=== PATIENT | female | born 1950 | race Caucasian/White ===

== ENCOUNTER → 2020-05-10 | Outpatient (CLI) | payer MEDICARE, BC, OTHER ==
--- NOTE | 2020-05-21 11:58 | REP ---
URINARY TRACT SONOGRAPHY HISTORY: Chronic kidney disease stage III. FINDINGS: Scanning at the level of the urinary bladder shows no abnormality. Renal cortical echogenicity pattern is normal and renal contours are smooth bilaterally. There is no evidence of hydronephrosis on either side. No cyst, mass, or calculus on either side. Right renal dimensions are 10.0 x 4.4 x 4.3 cm. The left kidney measures 9.9 x 4.4 x 5.4 cm. IMPRESSION: Unremarkable urinary tract sonography. MTDD
== END ==
LOC: M RAD 08:24
PROVIDERS: ATTEND Internal Medicine Nephrology
DX: N18.3 Chronic kidney disease, stage 3 (moderate) (principal)

== ENCOUNTER → 2020-08-16 | Outpatient (CLI) | payer MEDICARE, BC, OTHER ==
[2020-08-16 20:34] LABS: ALBUMIN 3.8 GM/DL (3.2-5.2); BILIRUBIN,TOTAL 0.3 MG/DL (0.2-1.0); CALCIUM LEVEL 8.7 MG/DL (8.8-10.2); CHOLESTEROL RISK RATIO 2.696 (<5); CREATININE FOR GFR 1.92 MG/DL (0.55-1.30); FREE T4 0.93 NG/DL (0.76-1.46); GLOMERULAR FILTRATION RATE 27.7 (>45); POTASSIUM SERUM 3.9 MEQ/L (3.5-5.1); THYROID STIMULATING HORMONE 1.87 uIU/ML (0.358-3.740); TOTAL PROTEIN 7.6 GM/DL (6.4-8.2)
[2020-08-16 20:37] LABS: CREATININE, URINE 69.4 MG/DL; MALB URINE SIEMENS 9.4 MG/L; MAU/CREAT RATIO 13.5 MCG/MG (0.0-30.0); TOTAL 25(OH) VITAMIN D 47.8 NG/ML (30.0-100.0)
[2020-08-16 20:47] LABS: HEMOGLOBIN A1c 6.7 %
== END ==
LOC: M WUC 15:10
PROVIDERS: ATTEND Nurse Practitioner Family
DX: I10 Essential (primary) hypertension (principal)

== ENCOUNTER → 2020-09-22 | Outpatient (CLI) | payer MEDICARE, BC, OTHER ==
[2020-09-22 16:55] LABS: CREATININE FOR GFR 1.63 MG/DL (0.55-1.30); GLOMERULAR FILTRATION RATE 33.4 (>45)
== END ==
LOC: M WUC 14:21
PROVIDERS: ATTEND Nurse Practitioner Family
DX: Z01.818 Encounter for other preprocedural examination (principal)

== ENCOUNTER → 2020-12-22 | Outpatient (CLI) | payer SELFPAY | LOC: M LABSMTC 11:11 | PROVIDERS: ATTEND Pediatrics | DX: Z11.52 Encounter for screening for COVID-19 (principal) ==

== ENCOUNTER → 2021-05-19 | Outpatient (CLI) | payer MEDICARE, BC, OTHER ==
[~2021-05-19] MED LIST: ATIV1TAB10; ATIV1TAB10 PO; CITA20TA7 PO; CITA40TA4; DOK1CAP4 PO; ERGO500029 PO; FAMO1TAB11 PO; FAMO20TA5; GABA-1171 PO; GLIP2.5T6 PO; HYDR-3490 PO; JARD1TAB; JARD1TAB3 PO; METF10004; METO1TAB33; METO1TAB7 PO; OMEP-218; ONDA8TAB10 PO; POTA1TAB14; POTA20TA6 PO; PROC10TA4; ROSU40TA4 PO; SERT50TA29 PO; TRAM50TA2; TRAZ-252 PO
== END ==
LOC: M ONCR 10:32
PROVIDERS: ATTEND Radiology Radiation Oncology
DX: C50.411 Malignant neoplasm of upper-outer quadrant of right female breast (principal); E11.22 Type 2 diabetes mellitus with diabetic chronic kidney disease; E78.00 Pure hypercholesterolemia, unspecified; E78.5 Hyperlipidemia, unspecified; M12.9 Arthropathy, unspecified; N18.9 Chronic kidney disease, unspecified; Z80.3 Family history of malignant neoplasm of breast; Z96.642 Presence of left artificial hip joint

== ENCOUNTER → 2021-05-30 | Outpatient (CLI) | payer MEDICARE, BC, OTHER ==
[2021-05-30 14:52] LABS: CREATININE FOR GFR 1.64 MG/DL (0.55-1.30); GLOMERULAR FILTRATION RATE 33.2 (>45)
== END ==
LOC: M LAB 13:46
PROVIDERS: ATTEND Nurse Practitioner Family
DX: R19.7 Diarrhea, unspecified (principal); R10.84 Generalized abdominal pain; R11.2 Nausea with vomiting, unspecified; K59.00 Constipation, unspecified

== ENCOUNTER 2021-06-17 14:13 | Outpatient (RCR) | payer MEDICARE, BC, OTHER | END 2021-06-19 | LOC: M ONCR 14:13 | PROVIDERS: ATTEND General Practice | DX: C50.411 Malignant neoplasm of upper-outer quadrant of right female breast (principal); R11.0 Nausea | CPT/HCPCS: 77290; 77295; 77300; 77332; 77334; 77336; 77387; 77412; G0463 ==

== ENCOUNTER → 2021-06-17 | Outpatient (CLI) | payer MEDICARE, BC, OTHER ==
--- NOTE | 2021-06-17 16:11 | REP ---
INDICATION: RT CHEST WALL NODULE CYST VS MASS. COMPARISON: None. TECHNIQUE: Real-time sonographic evaluation of the right chest wall FINDINGS: There are no cystic or solid masses. IMPRESSION: Negative right chest wall ultrasound. <Electronically signed by Vu Thompson > 06/17/21 [id number]
== END ==
LOC: M RAD 14:47
PROVIDERS: ATTEND Internal Medicine Medical Oncology
DX: R22.2 Localized swelling, mass and lump, trunk (principal)

== ENCOUNTER → 2021-06-20 | Outpatient (CLI) | payer MEDICARE, BC, OTHER ==
--- NOTE | 2021-06-20 20:23 | ECHO ---
ECHOCARDIOGRAM DATE OF PROCEDURE: 06/20/2021 Age: 70 Gender: Female Height: 157 cm Weight: 88 kg REFERRING PHYSICIAN: Rudy Dillard MD INDICATION: Chemotherapy. MEASUREMENTS: IVS 1.1 cm LV 4.9 cm LVPW 1.1 cm LA 4.0 cm Aorta 2.7 cm IVC 1.2 cm DOPPLER MEASUREMENT Mitral E wave velocity 64 Mitral A wave velocity 67 E prime septal 5.8 E prime lateral 7.5 LVEF 57% Global longitudinal strain negative 18.9% FINDINGS: This study is of acceptable technical quality. The patient is in sinus rhythm. Normal LV size with preserved LV systolic function, calculated LVEF 57%. Normal RV size and systolic function. Left atrium is at least moderately enlarged. Right atrium was poorly visualized. Aortic, mitral, and tricuspid valves appeared normal. Pulmonic valve was not well visualized. No pericardial effusion is noted. Indwelling Cortez catheter is of normal size and appropriately collapses with inspiration indicative of normal central venous pressure. The aortic root is normal. Aortic arch and abdominal aorta were not well visualized. Doppler interrogation of the aortic valve reveals no stenosis or insufficiency. There is trace mitral insufficiency and trace tricuspid insufficiency. Calculated pulmonary artery systolic pressure is within normal limits. Mitral inflow pattern and tissue Doppler imaging of the mitral annulus revealed grade 1 diastolic dysfunction. Global longitudinal strain was negative 18.9%, which represents normal values. Calculated LVEF was 57%. CONCLUSION: 1. Study is of acceptable technical quality. Underlying sinus rhythm. 2. Normal LV size with normal LV systolic function and grade 1 diastolic dysfunction. Calculated LVEF 57%. GLS -18.9% (normal values). 3. No significant valvular disease. 4. Normal central venous pressure and likely normal pulmonary artery pressure.
== END ==
LOC: M CARPUL 11:31
PROVIDERS: ATTEND Internal Medicine Medical Oncology
DX: Z51.81 Encounter for therapeutic drug level monitoring (principal); C50.911 Malignant neoplasm of unspecified site of right female breast

== ENCOUNTER 2021-07-01 14:17 | Outpatient (RCR) | payer MEDICARE, BC, OTHER ==
[~2021-07-01 14:17] MED LIST changes: -CITA40TA4; +CITA40TA7; +OMEP-173; -OMEP-218; +ONDA-84 PO; -ONDA8TAB10 PO; +POTA-151 PO; -POTA20TA6 PO; -PROC10TA4; +PROC10TA5 PO
[2021-07-19] MEDS ORDERED: TRAM50TA2 PO (19:54)
[2021-10-12] MEDS ORDERED: LOPE1CAP5 PO (07:56)
[2021-10-12] MEDS ORDERED: BUSP5TA PO (07:56)
[2021-10-12] MEDS ORDERED: LOSA50TA28 PO (07:56)
[2021-10-12] MEDS ORDERED: VITA-243 PO (07:56)
[2021-10-12] MEDS ORDERED: SUPETAB44 PO (07:56)
[2021-10-12] MEDS ORDERED: CALC600T61 PO (07:56)
[2021-10-12] MEDS ORDERED: BIOT10TA2 PO (07:56)
== END 2021-07-19 ==
LOC: M ONCR 14:17
PROVIDERS: ATTEND General Practice
DX: C50.411 Malignant neoplasm of upper-outer quadrant of right female breast (principal)

== ENCOUNTER 2021-07-19 17:06 | Emergency (ER) | payer OTHER, MEDICARE, BC ==
[2021-07-19] MEDS ORDERED: NS 1,000 ML IV ONE (17:40)
[2021-07-19] MEDS ORDERED: MORPHINE 2 MG/ML 1ML VIAL (J2270) IV ONE (17:40)
[2021-07-19] MEDS ORDERED: ONDANSETRON 4MG/2ML VIAL As Ordered ONE (18:04)
[2021-07-19] MEDS ORDERED: ONDANSETRON 4MG/2ML VIAL IV ONE (18:05)
[2021-07-19 18:06] LABS: BASO # 0.1 10^3/uL (0.0-0.2); BASO % 1.1 % (0.0-1.0); EOS # 0.1 10^3/uL (0.0-0.5); EOS % 1.3 % (0.0-3.0); HEMATOCRIT 40.2 % (36.0-47.0); HEMOGLOBIN 12.5 g/dl (12.0-15.5); LYMPH # 2.1 10^3/uL (1.5-5.0); LYMPH % 25.2 % (24.0-44.0); MEAN CORPUSCULAR HEMOGLOBIN 25.1 pg (27.0-33.0); MEAN CORPUSCULAR HGB CONC 31.1 g/dl (32.0-36.5); MEAN CORPUSCULAR VOLUME 80.6 fl (80.0-96.0); MONO # 0.9 10^3/uL (0.0-0.8); MONO % 10.5 % (2.0-8.0); NEUTROPHILS % 61.2 % (36.0-66.0); PLATELET COUNT, AUTOMATED 219 10^3/uL (150-450); RED BLOOD COUNT 4.99 10^6/uL (4.00-5.40); WHITE BLOOD COUNT 8.2 10^3/uL (4.0-10.0)
[2021-07-19 18:20] LABS: INR 1.03; PROTHROMBIN TIME 13.9 SECONDS (12.7-14.5)
[2021-07-19] MEDS ORDERED: ISOVUE-370 76% 100ML VIAL As Ordered ONE (18:30)
[2021-07-19 19:48] VITALS: BP 152/65
[2021-07-19] MEDS ORDERED: TRAM50TA2 PO (19:54)
[2021-07-19] MEDS ORDERED: traMADol 50 MG TAB PO ONE (19:55)
[2021-10-12] MEDS ORDERED: BIOT10TA2 PO (07:56)
[2021-10-12] MEDS ORDERED: BUSP5TA PO (07:56)
[2021-10-12] MEDS ORDERED: CALC600T61 PO (07:56)
[2021-10-12] MEDS ORDERED: LOPE1CAP5 PO (07:56)
[2021-10-12] MEDS ORDERED: SUPETAB44 PO (07:56)
[2021-10-12] MEDS ORDERED: VITA-243 PO (07:56)
[2021-10-12] MEDS ORDERED: LOSA50TA28 PO (07:56)
== END 2021-07-19 20:21 | disposition home or self-care (01) ==
LOC: M ED 17:06 → EDBD 17:06 → M ED 20:21
DX: R51.9 Headache, unspecified (principal); S20.219A Contusion of unspecified front wall of thorax, initial encounter; V49.59XA Passenger injured in collision with other motor vehicles in traffic accident, initial encounter; Y92.410 Unspecified street and highway as the place of occurrence of the external cause; R91.1 Solitary pulmonary nodule; E04.1 Nontoxic single thyroid nodule; Z88.8 Allergy status to other drugs, medicaments and biological substances; Z79.899 Other long term (current) drug therapy
CPT/HCPCS: 70450; 71260; 72125; 80047; 85025; 85610; 85730; 86850; 86900; 86901; 96361; 96374; 96375; 99284; J2270; J2405; Q9967

== ENCOUNTER → 2021-08-11 | Outpatient (CLI) | payer MEDICARE, BC, OTHER ==
[~2021-08-11] MED LIST changes: +CITA40TA4; -CITA40TA7; -OMEP-173; +OMEP-218; -ONDA-84 PO; +ONDA8TAB10 PO; -POTA-151 PO; +POTA20TA6 PO; +PROC10TA4; -PROC10TA5 PO; +TRAM50TA2 PO
--- NOTE | 2021-08-11 15:09 | REP ---
INDICATION: THYROID NODULE COMPARISON: None. TECHNIQUE: Mayo scale and color evaluation of the thyroid gland using the linear high frequency transducer. FINDINGS: Right thyroid lobe measures 3.6 x 1.4 x 1.9 cm and is relatively normal without cystic or nodular/mass lesion. Isthmus measures 4.4 mm in width. Left thyroid lobe measures 4.4 x 2.2 x 2.2 cm and includes 2.6 x 1.6 x 1.9 cm heterogeneous isoechoic nodule in the midpole and 1.3 x 1.1 x 1.1 cm hypoechoic complex solid nodule in the posterior mid/lower pole. IMPRESSION: No prior examinations are available for comparison. Larger lesion in the left thyroid lobe is category TR4 and warrants biopsy. <Electronically signed by Rogerio Pickens > 08/11/21 [id number]
== END ==
LOC: M RAD 13:58
PROVIDERS: ATTEND Internal Medicine
DX: E04.1 Nontoxic single thyroid nodule (principal)

== ENCOUNTER → 2021-09-16 | Outpatient (CLI) | payer MEDICARE, BC, OTHER ==
[~2021-09-16] MED LIST changes: -CITA40TA4; +CITA40TA7; +OMEP-173; -OMEP-218; +ONDA-84 PO; -ONDA8TAB10 PO; +POTA-151 PO; -POTA20TA6 PO; -PROC10TA4; +PROC10TA5 PO
== END ==
LOC: M WUC 15:44
PROVIDERS: ATTEND Internal Medicine Medical Oncology
DX: C50.919 Malignant neoplasm of unspecified site of unspecified female breast (principal)

== ENCOUNTER → 2021-09-23 | Outpatient (CLI) | payer MEDICARE, BC, OTHER ==
[~2021-09-23] MED LIST changes: +PROHANCE 279.3MG/ML 5ML VIAL ONE
== END ==
LOC: M PLAIMG 10:33
PROVIDERS: ATTEND Internal Medicine Medical Oncology
DX: R51.9 Headache, unspecified (principal); C50.919 Malignant neoplasm of unspecified site of unspecified female breast; Z88.8 Allergy status to other drugs, medicaments and biological substances
CPT/HCPCS: 70553; A9576

== ENCOUNTER → 2021-09-28 | Outpatient (REF) | payer MEDICARE, OTHER ==
[~2021-09-28] MED LIST changes: -PROHANCE 279.3MG/ML 5ML VIAL ONE
== END ==
LOC: M LAB REF 17:16
PROVIDERS: ATTEND Internal Medicine Endocrinology, Diabetes & Metabolism
DX: E04.2 Nontoxic multinodular goiter (principal)

== ENCOUNTER → 2021-10-21 | Outpatient (CLI) | payer MEDICARE, BC, OTHER ==
[~2021-10-21] MED LIST changes: +BIOT10TA2 PO; +BUSP5TA PO; +CALC600T61 PO; +LETR2.5T2 PO; +LOPE1CAP5 PO; +LOSA50TA28 PO; +POTA1TAB14 PO; +SUPETAB44 PO; +VITA-243 PO
== END ==
LOC: M LABSMTC 09:29
PROVIDERS: ATTEND Anesthesiology
DX: Z01.812 Encounter for preprocedural laboratory examination (principal); Z20.822 Contact with and (suspected) exposure to COVID-19

== ENCOUNTER → 2021-10-24 | Outpatient (CLI) | payer MEDICARE, BC, OTHER | LOC: M CARPUL 13:35 | PROVIDERS: ATTEND Internal Medicine Medical Oncology | DX: Z92.21 Personal history of antineoplastic chemotherapy (principal); C50.919 Malignant neoplasm of unspecified site of unspecified female breast ==

== ENCOUNTER 2021-10-26 13:24 | Day surgery (SDC) | payer MEDICARE, BC, OTHER ==
[~2021-10-26] VITALS: Ht 158.8 cm; Wt 88.9 kg
[~2021-10-26 13:24] MED LIST changes: +NS 1,000 ML IV ONE
[2021-10-26] MEDS ORDERED: propofoL 200 MG/20 ML VIAL As Ordered ONE ×2 (14:45→15:19)
[2021-10-26] MEDS ORDERED: LIDOCAINE 2% INJ 100 MG/5 ML SYRINGE As Ordered ONE (14:45)
[2021-10-26] MEDS ORDERED: fentaNYL 100 MCG/2 ML INJECTION As Ordered ONE (14:45)
[2021-10-26 15:49] VITALS: BP 140/63
== END 2021-10-26 15:51 | disposition home or self-care (01) ==
LOC: M OPP 13:24
PROVIDERS: ATTEND Internal Medicine Gastroenterology
DX: R10.30 Lower abdominal pain, unspecified (principal); R19.7 Diarrhea, unspecified; K57.30 Diverticulosis of large intestine without perforation or abscess without bleeding; K64.0 First degree hemorrhoids; R10.13 Epigastric pain; K28.9 Gastrojejunal ulcer, unspecified as acute or chronic, without hemorrhage or perforation; Z98.84 Bariatric surgery status; I10 Essential (primary) hypertension; E11.9 Type 2 diabetes mellitus without complications; Z88.8 Allergy status to other drugs, medicaments and biological substances; Z79.899 Other long term (current) drug therapy
CPT/HCPCS: 43239; 45380; 88305; J3010

== ENCOUNTER 2021-12-16 10:04 | Emergency (ER) | payer MEDICARE, BC, OTHER ==
[~2021-12-16] VITALS: Ht 160 cm; Wt 89.7 kg
[~2021-12-16 10:04] MED LIST changes: +CELE20TA PO; -NS 1,000 ML IV ONE; +SEMAGLUTIDE SQ
[2021-12-16] MEDS ORDERED: OMEP40CA5 PO (10:32)
[2021-12-16] MEDS ORDERED: NS 500 ML IV ONE (12:05)
[2021-12-16] MEDS ORDERED: ACETAMINOPHEN TAB 650MG DOSE (2X325MG) PO ONE (12:10)
[2021-12-16 13:17] LABS: BASO # 0.1 10^3/uL (0.0-0.2); BASO % 0.9 % (0.0-1.0); EOS # 0.1 10^3/uL (0.0-0.5); EOS % 1.1 % (0.0-3.0); HEMATOCRIT 38.4 % (36.0-47.0); LYMPH % 14.9 % (24.0-44.0); MEAN CORPUSCULAR HEMOGLOBIN 25.8 pg (27.0-33.0); MEAN CORPUSCULAR HGB CONC 31.3 g/dl (32.0-36.5); MEAN CORPUSCULAR VOLUME 82.6 fl (80.0-96.0); MONO # 1.2 10^3/uL (0.0-0.8); MONO % 18.2 % (2.0-8.0); NEUTROPHILS # 4.2 10^3/uL (1.5-8.5); NEUTROPHILS % 64.3 % (36.0-66.0); PLATELET COUNT, AUTOMATED 187 10^3/uL (150-450); RED BLOOD COUNT 4.65 10^6/uL (4.00-5.40); WHITE BLOOD COUNT 6.5 10^3/uL (4.0-10.0)
[2021-12-16 13:44] LABS: CALCIUM LEVEL 9.2 MG/DL (8.8-10.2); CREATININE FOR GFR 1.58 MG/DL (0.55-1.30); GLOMERULAR FILTRATION RATE 34.5 (>45); POTASSIUM SERUM 3.9 MEQ/L (3.5-5.1)
[2021-12-16] MEDS ORDERED: BEBTELOVIMAB 175MG 2ML VIAL (EUA) IV ONE (14:35)
[2021-12-16] MEDS ORDERED: HYDR-3490 PO (17:51)
[2021-12-16] MEDS ORDERED: OZEM2INJ SC (17:51)
[2021-12-16] MEDS ORDERED: GABA-1171 PO (17:51)
[2021-12-16] MEDS ORDERED: HOME MED LIST COMPLETE! XX SCH (17:55)
[2021-12-16 18:31] VITALS: BP 130/61
== END 2021-12-16 18:37 | disposition home or self-care (01) ==
LOC: M ED 10:04
DX: R05.9 Cough, unspecified (principal); R07.89 Other chest pain; R06.02 Shortness of breath; U07.1 COVID-19; E11.9 Type 2 diabetes mellitus without complications; I12.9 Hypertensive chronic kidney disease with stage 1 through stage 4 chronic kidney disease, or unspecified chronic kidney disease; N18.9 Chronic kidney disease, unspecified; Z85.3 Personal history of malignant neoplasm of breast; Z88.8 Allergy status to other drugs, medicaments and biological substances; Z79.899 Other long term (current) drug therapy; Z79.84 Long term (current) use of oral hypoglycemic drugs
CPT/HCPCS: 71046; 80048; 84484; 85025; 87486; 87581; 87633; 87798; 87880; 93005; 96374; 99284; M0222

== ENCOUNTER 2021-12-16 16:41 | Outpatient (CLI) | payer MEDICARE, BC, OTHER ==
[~2021-12-16 16:41] MED LIST changes: +OMEP40CA5 PO
[2021-12-16] MEDS ORDERED: ACETAMINOPHEN TAB 650MG DOSE (2X325MG) PO PRN (16:45)
[2021-12-16] MEDS ORDERED: ALBUTEROL 90 MCG/ACT 8GM HFA INHALER INH PRN (16:45)
[2021-12-16] MEDS ORDERED: ALBUTEROL SULFATE 2.5 MG/0.5 ML INH NEB SOLN INH PRN (16:45)
[2021-12-16] MEDS ORDERED: methylPREDNISolone 125MG 2ML VIAL IV PRN (16:45)
[2021-12-16] MEDS ORDERED: EPINEPHrine INJ 1 MG/ML 1ML AMP IM PRN (16:45)
[2021-12-16] MEDS ORDERED: diphenhydrAMINE 50MG/ML VIAL (J1200) IV PRN (16:45)
[2021-12-16] MEDS ORDERED: NS 1,000 ML IV SCH (17:30)
[2021-12-16] MEDS ORDERED: OZEM2INJ SC (17:51)
[2021-12-16] MEDS ORDERED: GABA-1171 PO (17:51)
[2021-12-16] MEDS ORDERED: HYDR-3490 PO (17:51)
[2021-12-16] MEDS ORDERED: BEBTELOVIMAB 175MG 2ML VIAL (EUA) IV ONE (18:00)
[2021-12-16 18:46] VITALS: BP 136/60
[2021-12-16 19:16] VITALS: BP 138/70
[2021-12-16 19:46] VITALS: BP 113/54
== END 2021-12-16 17:55 | disposition home or self-care (01) ==
LOC: M OPCLI4 16:41
PROVIDERS: ATTEND Counselor Addiction (Substance Use Disorder)
DX: U07.1 COVID-19 (principal); Z88.8 Allergy status to other drugs, medicaments and biological substances

== ENCOUNTER → 2022-01-11 | Outpatient (CLI) | payer MEDICARE, BC, OTHER ==
[~2022-01-11] MED LIST changes: +OZEM2INJ SC
== END ==
LOC: M ONCR 13:36
PROVIDERS: ATTEND General Practice
DX: C50.411 Malignant neoplasm of upper-outer quadrant of right female breast (principal); G62.0 Drug-induced polyneuropathy; Z88.8 Allergy status to other drugs, medicaments and biological substances; Z92.21 Personal history of antineoplastic chemotherapy; Z92.3 Personal history of irradiation

== ENCOUNTER → 2022-02-13 | Outpatient (CLI) | payer MEDICARE, BC, OTHER | LOC: M SLEEP HO 12:34 | PROVIDERS: ATTEND Internal Medicine Cardiovascular Disease | DX: R94.09 Abnormal results of other function studies of central nervous system (principal); I27.20 Pulmonary hypertension, unspecified; G47.9 Sleep disorder, unspecified; I49.3 Ventricular premature depolarization ==

== ENCOUNTER → 2022-03-02 | Outpatient (CLI) | payer MEDICARE, BC, OTHER | LOC: M CARPUL 12:51 | PROVIDERS: ATTEND Internal Medicine Medical Oncology | DX: C50.411 Malignant neoplasm of upper-outer quadrant of right female breast (principal); R68.89 Other general symptoms and signs ==

== ENCOUNTER → 2022-03-02 | Outpatient (CLI) | payer MEDICARE, BC, OTHER | LOC: M WHC 14:03 | PROVIDERS: ATTEND Internal Medicine Medical Oncology | DX: C50.411 Malignant neoplasm of upper-outer quadrant of right female breast (principal); Z79.811 Long term (current) use of aromatase inhibitors; M85.851 Other specified disorders of bone density and structure, right thigh ==

== ENCOUNTER → 2022-04-27 | Outpatient (REF) | payer MEDICARE, BC, OTHER | LOC: M LAB REF 12:13 | PROVIDERS: ATTEND Internal Medicine | DX: N18.32 Chronic kidney disease, stage 3b (principal) ==

== ENCOUNTER → 2022-05-03 | Outpatient (CLI) | payer MEDICARE, BC, OTHER | LOC: M CARPUL 13:30 | PROVIDERS: ATTEND Internal Medicine Medical Oncology | DX: I42.7 Cardiomyopathy due to drug and external agent (principal); C50.911 Malignant neoplasm of unspecified site of right female breast ==

== ENCOUNTER → 2022-06-16 | Outpatient (REF) | payer MEDICARE, BC, OTHER ==
[2022-06-16 18:19] LABS: BASO # 0.1 10^3/uL (0.0-0.2); BASO % 1.4 % (0.0-1.0); EOS # 0.1 10^3/uL (0.0-0.5); HEMATOCRIT 40.9 % (36.0-47.0); HEMOGLOBIN 12.6 g/dl (12.0-15.5); LYMPH # 2.1 10^3/uL (1.5-5.0); MEAN CORPUSCULAR HGB CONC 30.8 g/dl (32.0-36.5); MEAN CORPUSCULAR VOLUME 84.5 fl (80.0-96.0); MONO # 0.7 10^3/uL (0.0-0.8); MONO % 9.1 % (2.0-8.0); NEUTROPHILS # 4.9 10^3/uL (1.5-8.5); NEUTROPHILS % 62.1 % (36.0-66.0); PLATELET COUNT, AUTOMATED 273 10^3/uL (150-450); RED BLOOD COUNT 4.84 10^6/uL (4.00-5.40)
[2022-06-16 18:53] LABS: ALBUMIN 3.7 GM/DL (3.2-5.2); BILIRUBIN,TOTAL 0.3 MG/DL (0.2-1.0); CALCIUM LEVEL 9.5 MG/DL (8.8-10.2); CREATININE FOR GFR 1.71 MG/DL (0.55-1.30); GLOMERULAR FILTRATION RATE 31.5 (>45); POTASSIUM SERUM 3.9 MEQ/L (3.5-5.1); TOTAL PROTEIN 7.5 GM/DL (6.4-8.2)
== END ==
LOC: M WUC 17:25
PROVIDERS: ATTEND General Practice
DX: C50.411 Malignant neoplasm of upper-outer quadrant of right female breast (principal)

== ENCOUNTER → 2022-06-21 | Outpatient (REF) | payer MEDICARE, OTHER ==
[2022-06-21 18:21] LABS: INR 0.92; PROTHROMBIN TIME 12.6 SECONDS (12.5-14.5)
== END ==
LOC: M LABWUC 16:41
PROVIDERS: ATTEND General Practice
DX: C50.411 Malignant neoplasm of upper-outer quadrant of right female breast (principal)

== ENCOUNTER → 2022-06-26 | Outpatient (CLI) | payer MEDICARE, BC, OTHER ==
[~2022-06-26] MED LIST changes: +PROHANCE 279.3MG/ML 5ML VIAL ONE
== END ==
LOC: M PLAIMG 09:24
PROVIDERS: ATTEND General Practice
DX: C50.411 Malignant neoplasm of upper-outer quadrant of right female breast (principal)
CPT/HCPCS: A9576; C8908

== ENCOUNTER → 2022-07-04 | Outpatient (POV) | payer MEDICARE, BC, OTHER ==
[~2022-07-04] VITALS: Ht 157.5 cm; Wt 81.8 kg
[~2022-07-04] MED LIST changes: -PROHANCE 279.3MG/ML 5ML VIAL ONE
[2022-07-04 09:30] VITALS: BP 135/64
== END ==
LOC: M IRPOV 09:21
PROVIDERS: ATTEND Radiology Diagnostic Radiology
DX: Z45.2 Encounter for adjustment and management of vascular access device (principal); E11.9 Type 2 diabetes mellitus without complications; I10 Essential (primary) hypertension; N19 Unspecified kidney failure; Z79.899 Other long term (current) drug therapy; Z85.3 Personal history of malignant neoplasm of breast; Z88.8 Allergy status to other drugs, medicaments and biological substances; Z90.710 Acquired absence of both cervix and uterus

== ENCOUNTER → 2022-07-17 | Outpatient (CLI) | payer MEDICARE, BC, OTHER | LOC: M LABSMTC 11:01 | PROVIDERS: ATTEND Anesthesiology | DX: Z01.812 Encounter for preprocedural laboratory examination (principal); Z11.52 Encounter for screening for COVID-19 ==

== ENCOUNTER → 2022-07-18 | Outpatient (CLI) | payer MEDICARE, BC, OTHER | LOC: M ONCR 09:17 | PROVIDERS: ATTEND Radiology Radiation Oncology | DX: Z08 Encounter for follow-up examination after completed treatment for malignant neoplasm (principal); Z85.3 Personal history of malignant neoplasm of breast; Z92.3 Personal history of irradiation; Z87.891 Personal history of nicotine dependence; Z88.8 Allergy status to other drugs, medicaments and biological substances; Z79.811 Long term (current) use of aromatase inhibitors; Z79.84 Long term (current) use of oral hypoglycemic drugs; Z79.899 Other long term (current) drug therapy ==

== ENCOUNTER → 2022-07-19 | Outpatient (CLI) | payer MEDICARE, BC, OTHER ==
[~2022-07-19] MED LIST changes: +LIDOCAINE 1% MDV 20ML VIAL As Ordered ONE; +MIDAZOLAM INJ 2MG/2ML VIAL (J2250 PER 1MG) As Ordered ONE; +NS 1,000 ML IV SCH; +ceFAZolin 2 GM/D5W 50 ML IV BAG As Ordered ONE; +ceFAZolin SOD 2 GM in IV 1 EA IV ONE; +diphenhydrAMINE 50MG/ML VIAL As Ordered ONE; +fentaNYL 100 MCG/2 ML INJECTION As Ordered ONE
[2022-07-19 16:16] VITALS: BP 126/59
== END ==
LOC: M IRPRO 12:55
PROVIDERS: ATTEND Radiology Diagnostic Radiology
DX: Z45.2 Encounter for adjustment and management of vascular access device (principal); C50.911 Malignant neoplasm of unspecified site of right female breast; Z88.8 Allergy status to other drugs, medicaments and biological substances; Z79.899 Other long term (current) drug therapy
CPT/HCPCS: 36590; 99152; 99153; J0690; J1200; J1644; J2250; J3010

== ENCOUNTER → 2022-08-08 | Outpatient (POV) | payer MEDICARE, BC, OTHER ==
[~2022-08-08] VITALS: Ht 157.5 cm; Wt 79.5 kg
[~2022-08-08] MED LIST changes: -LIDOCAINE 1% MDV 20ML VIAL As Ordered ONE; -MIDAZOLAM INJ 2MG/2ML VIAL (J2250 PER 1MG) As Ordered ONE; -NS 1,000 ML IV SCH; -ceFAZolin 2 GM/D5W 50 ML IV BAG As Ordered ONE; -ceFAZolin SOD 2 GM in IV 1 EA IV ONE; -diphenhydrAMINE 50MG/ML VIAL As Ordered ONE; -fentaNYL 100 MCG/2 ML INJECTION As Ordered ONE
[2022-08-08 13:10] VITALS: BP 125/65
== END ==
LOC: M IRPOV 12:44
PROVIDERS: ATTEND Radiology Diagnostic Radiology
DX: Z45.2 Encounter for adjustment and management of vascular access device (principal)

== ENCOUNTER → 2022-10-30 | Outpatient (REF) | payer MEDICARE, BC, OTHER | LOC: M LAB REF 11:52 | PROVIDERS: ATTEND Internal Medicine | DX: N18.32 Chronic kidney disease, stage 3b (principal) ==

== ENCOUNTER → 2023-05-01 | Outpatient (CLI) | payer MEDICARE, BC, OTHER ==
[~2023-05-01] MED LIST changes: +POTA-298; +POTA-298 PO; -POTA1TAB14; -POTA1TAB14 PO
== END ==
LOC: M WUC 10:43
PROVIDERS: ATTEND Internal Medicine
DX: M20.42 Other hammer toe(s) (acquired), left foot (principal); M77.32 Calcaneal spur, left foot; M19.072 Primary osteoarthritis, left ankle and foot

== ENCOUNTER → 2023-07-31 | Outpatient (REF) | payer MEDICARE, BC, OTHER | LOC: M LAB REF 16:15 | PROVIDERS: ATTEND Internal Medicine | DX: N18.32 Chronic kidney disease, stage 3b (principal) ==

== ENCOUNTER → 2023-08-22 | Outpatient (CLI) | payer MEDICARE, BC, OTHER ==
[~2023-08-22] MED LIST changes: +PROHANCE 279.3MG/ML 15ML VIAL ONE
== END ==
LOC: M PLAIMG 14:10
PROVIDERS: ATTEND Internal Medicine
DX: Z08 Encounter for follow-up examination after completed treatment for malignant neoplasm (principal); Z85.3 Personal history of malignant neoplasm of breast
CPT/HCPCS: A9576; C8908

== ENCOUNTER → 2024-03-19 | Outpatient (REF) | payer MEDICARE, BC, OTHER ==
[~2024-03-19] MED LIST changes: -PROHANCE 279.3MG/ML 15ML VIAL ONE; -ROSU40TA4 PO; +ROSU40TA63 PO
== END ==
LOC: M LAB REF 13:09
PROVIDERS: ATTEND Internal Medicine
DX: N18.32 Chronic kidney disease, stage 3b (principal)

== ENCOUNTER 2024-04-21 21:17 | Emergency (ER) | payer MEDICARE, BC ==
[~2024-04-21 21:17] MED LIST changes: -ROSU40TA63 PO; +ROSU40TA81 PO
[2024-04-21 21:41] LABS: BASO # 0.1 10^3/uL (0.0-0.2); BASO % 1.2 % (0.0-1.0); EOS # 0.1 10^3/uL (0.0-0.5); EOS % 1.7 % (0.0-3.0); HEMATOCRIT 39.3 % (36.0-47.0); HEMOGLOBIN 12.3 g/dl (12.0-15.5); LYMPH # 2.7 10^3/uL (1.5-5.0); LYMPH % 31.9 % (24.0-44.0); MEAN CORPUSCULAR HEMOGLOBIN 26.6 pg (27.0-33.0); MEAN CORPUSCULAR HGB CONC 31.3 g/dl (32.0-36.5); MEAN CORPUSCULAR VOLUME 85.1 fl (80.0-96.0); MONO # 0.9 10^3/uL (0.0-0.8); NEUTROPHILS # 4.5 10^3/uL (1.5-8.5); PLATELET COUNT, AUTOMATED 240 10^3/uL (150-450); RED BLOOD COUNT 4.62 10^6/uL (4.00-5.40); WHITE BLOOD COUNT 8.4 10^3/uL (4.0-10.0)
[2024-04-21 22:05] LABS: ETHYL ALCOHOL (ETHANOL) 0.121 % (0.000-0.010)
[2024-04-21 22:07] LABS: ALBUMIN 3.8 G/DL (3.2-5.2); ALKALINE PHOSPHATASE 87 U/L (46-116); ALT/SGPT 45 U/L (7.0-40); AST/SGOT 40 U/L (<34); BILIRUBIN,DIRECT < 0.1 MG/DL (<0.4); BILIRUBIN,TOTAL 0.2 MG/DL (0.3-1.2); BLOOD UREA NITROGEN 20 MG/DL (9-23); CALCIUM LEVEL 8.9 MG/DL (8.3-10.6); CARBON DIOXIDE LEVEL 19 MMOL/L (20-31); CHLORIDE LEVEL 112 MMOL/L (98-107); CREATININE FOR GFR 1.41 MG/DL (0.55-1.30); GLOMERULAR FILTRATION RATE 39.1 (>39); GLUCOSE, FASTING 76 MG/DL (74-106); POTASSIUM SERUM 4.7 MMOL/L (3.5-5.1); SALICYLATE LEVEL < 3.0 MG/DL (<30); SODIUM LEVEL 141 MMOL/L (136-145); TOTAL PROTEIN 7.4 G/DL (5.7-8.2)
[2024-04-21 22:09] LABS: THYROID STIMULATING HORMONE 2.238 uIU/ML (0.55-4.78)
[2024-04-21 22:12] LABS: CPK CREATINE PHOSPHOKINASE 115 U/L (34-145)
[2024-04-21] MEDS: diazePAM 10MG/2ML SYRINGE IV STA (22:22)
[2024-04-21] MEDS: NS 1,000 ML IV ONE (22:49)
[2024-04-21 23:40] LABS: AMPHETAMINES LEVEL URINE NEGATIVE (NEGATIVE); BARBITURATES URINE NEGATIVE (NEGATIVE); BENZODIAZEPINES URINE NEGATIVE (NEGATIVE); CANNABINOIDS URINE NEGATIVE (NEGATIVE); COCAINE METABOLITE URINE NEGATIVE (NEGATIVE); METHADONE URINE NEGATIVE (NEGATIVE); OPIATES URINE NEGATIVE (NEGATIVE); PHENCYCLIDINE URINE NEGATIVE (NEGATIVE)
[2024-04-22 01:12] LABS: HEMATOCRIT 23.2 % (36.0-47.0); MEAN CORPUSCULAR HEMOGLOBIN 27.2 pg (27.0-33.0); MEAN CORPUSCULAR HGB CONC 31.5 g/dl (32.0-36.5); MEAN CORPUSCULAR VOLUME 86.6 fl (80.0-96.0); RED BLOOD COUNT 2.68 10^6/uL (4.00-5.40); WHITE BLOOD COUNT 5.6 10^3/uL (4.0-10.0)
[2024-04-22 01:14] LABS: HEMOGLOBIN 7.3 g/dl (12.0-15.5); PLATELET COUNT, AUTOMATED 135 10^3/uL (150-450)
[2024-04-22 06:00] VITALS: BP 130/72; O2SAT 99
[2024-04-22] MEDS ORDERED: SEMA1PEN2 SQ (21:58)
== END 2024-04-22 07:45 | disposition home or self-care (01) ==
LOC: M ED 21:17 → EDBD 21:17 → M ED 04-22 07:45
DX: F32.A Depression, unspecified (principal); Z79.899 Other long term (current) drug therapy; Z88.8 Allergy status to other drugs, medicaments and biological substances

== ENCOUNTER 2024-04-22 18:04 | Inpatient (IN) | payer MEDICARE, BC ==
[~2024-04-22] VITALS: Ht 160 cm; Wt 74.4 kg
[2024-04-22 18:40] LABS: BASO # 0.1 10^3/uL (0.0-0.2); EOS # 0.1 10^3/uL (0.0-0.5); EOS % 1.2 % (0.0-3.0); HEMATOCRIT 38.5 % (36.0-47.0); LYMPH # 2.1 10^3/uL (1.5-5.0); LYMPH % 25.1 % (24.0-44.0); MEAN CORPUSCULAR HEMOGLOBIN 26.8 pg (27.0-33.0); MEAN CORPUSCULAR HGB CONC 31.7 g/dl (32.0-36.5); MEAN CORPUSCULAR VOLUME 84.6 fl (80.0-96.0); MONO # 0.8 10^3/uL (0.0-0.8); NEUTROPHILS # 5.1 10^3/uL (1.5-8.5); NEUTROPHILS % 61.7 % (36.0-66.0); PLATELET COUNT, AUTOMATED 227 10^3/uL (150-450); RED BLOOD COUNT 4.55 10^6/uL (4.00-5.40); WHITE BLOOD COUNT 8.2 10^3/uL (4.0-10.0)
[2024-04-22 18:55] LABS: HEMOGLOBIN 12.2 g/dl (12.0-15.5)
[2024-04-22 19:04] LABS: AMPHETAMINES LEVEL URINE NEGATIVE (NEGATIVE); BARBITURATES URINE NEGATIVE (NEGATIVE); BENZODIAZEPINES URINE NEGATIVE (NEGATIVE); CANNABINOIDS URINE NEGATIVE (NEGATIVE); COCAINE METABOLITE URINE NEGATIVE (NEGATIVE); METHADONE URINE NEGATIVE (NEGATIVE); OPIATES URINE NEGATIVE (NEGATIVE); PHENCYCLIDINE URINE NEGATIVE (NEGATIVE)
[2024-04-22 19:06] LABS: ETHYL ALCOHOL (ETHANOL) < 0.003 % (0.000-0.010)
[2024-04-22 19:08] LABS: CPK CREATINE PHOSPHOKINASE 112 U/L (34-145); SALICYLATE LEVEL < 3.0 MG/DL (<30)
[2024-04-22 19:14] LABS: ALBUMIN 3.9 G/DL (3.2-5.2); ALKALINE PHOSPHATASE 96 U/L (46-116); ALT/SGPT 40 U/L (7.0-40); AST/SGOT 42 U/L (<34); BILIRUBIN,DIRECT 0.2 MG/DL (<0.4); BILIRUBIN,TOTAL 0.5 MG/DL (0.3-1.2); BLOOD UREA NITROGEN 17 MG/DL (9-23); CALCIUM LEVEL 9.1 MG/DL (8.3-10.6); CARBON DIOXIDE LEVEL 22 MMOL/L (20-31); CHLORIDE LEVEL 108 MMOL/L (98-107); CREATININE FOR GFR 1.15 MG/DL (0.55-1.30); GLOMERULAR FILTRATION RATE 49.5 (>39); GLUCOSE, FASTING 175 MG/DL (74-106); POTASSIUM SERUM 3.9 MMOL/L (3.5-5.1); SODIUM LEVEL 138 MMOL/L (136-145); THYROID STIMULATING HORMONE 2.361 uIU/ML (0.55-4.78); TOTAL PROTEIN 7.2 G/DL (5.7-8.2)
[2024-04-22] MEDS ORDERED: SEMA1PEN2 SQ (21:58)
[2024-04-22] MEDS ORDERED: HOME MED LIST COMPLETE! XX SCH (22:00)
[2024-04-23 01:35] LABS: APPEARANCE, URINE CLEAR (CLEAR); BACTERIA, URINE AUTO NEGATIVE (NEGATIVE); BILIRUBIN, URINE AUTO NEGATIVE (NEGATIVE); BLOOD, URINE BLOOD NEGATIVE (NEGATIVE); COLOR, URINE STRAW (YELLOW); GLUCOSE, URINE (UA) AUTO 3+ mg/dL (NEGATIVE); KETONE, URINE AUTO NEGATIVE (NEGATIVE); LEUKOCYTE ESTERASE, URINE AUTO NEGATIVE (NEGATIVE); MUCUS, URINE SMALL (NEGATIVE); NITRITE, URINE AUTO NEGATIVE (NEGATIVE); PROTEIN, URINE AUTO NEGATIVE (NEGATIVE); RBC, URINE AUTO 0 /HPF (0-3); SPECIFIC GRAVITY URINE AUTO 1.005 (1.002-1.035); SQUAMOUS EPITHELIAL CELL UR AU 0 /HPF (0-6); UROBILINOGEN, URINE AUTO 0.2 mg/dL (0.0-2.0); WBC, URINE AUTO 1 /HPF (0-3)
[2024-04-23] MEDS ORDERED: HOME MED LIST COMPLETE! XX SCH (09:20)
[2024-04-23] MEDS: LETROZOLE 2.5 MG TAB PO SCH (10:00)
[2024-04-23] MEDS: LOSARTAN 50MG TABLET PO SCH (11:27)
[2024-04-23] MEDS: CALCIUM CARBONATE 500 MG CHEW U/D PO SCH (11:27)
[2024-04-23] MEDS: FOLIC ACID 1MG TAB PO SCH (11:27)
[2024-04-23] MEDS: METOPROLOL SUCC (TopROL XL) 50MG **XL** TAB PO SCH (11:27)
[2024-04-23] MEDS: CitaloPRAM (CeleXA) 20 MG TAB PO SCH (11:28)
[2024-04-23] MEDS: ASCORBIC ACID 500 MG TAB PO SCH (11:28)
[2024-04-23] MEDS ORDERED: ACETAMINOPHEN TAB 650MG DOSE (2X325MG) PO PRN (13:40)
[2024-04-23] MEDS ORDERED: IBUPROFEN 400MG TAB PO PRN (13:40)
[2024-04-23] MEDS ORDERED: diphenhydrAMINE 25MG CAP PO PRN (13:40)
[2024-04-23] MEDS ORDERED: traZODone 50 MG TAB PO PRN (13:40)
[2024-04-23] MEDS ORDERED: MAALOX 30 ML SUSP *UDC PO PRN (13:40)
[2024-04-23] MEDS: traZODone 50 MG TAB PO SCH (21:20)
[2024-04-23] MEDS: ROSUVASTATIN 10 MG TAB (CRESTOR) PO SCH (21:21)
[2024-04-24 06:09] VITALS: BP 127/60; TEMP 97.2; O2SAT 96
[2024-04-24] MEDS: POTASSIUM CHLORIDE 10MEQ SR TABLET PO SCH (08:58)
[2024-04-24] MEDS ORDERED: GLUCAGON INJ 1MG VIAL SC PRN (11:20)
[2024-04-24] MEDS ORDERED: DEXTROSE 50% 50ML SYRINGE IV PRN (11:20)
[2024-04-24] MEDS ORDERED: GLUCOSE 4 GM CHEW PO PRN (11:20)
[2024-04-24] MEDS: METOPROLOL SUCC (TopROL XL) 50MG **XL** TAB PO SCH (11:31)
[2024-04-24] MEDS: LOSARTAN 50MG TABLET PO SCH (11:31)
[2024-04-24] MEDS: INSULIN LISPRO (NovoLOG) PER UNIT SC SCH (11:34)
[2024-04-24 15:51] VITALS: BP 128/62; TEMP 97.9; O2SAT 99
[2024-04-24] MEDS: EMPAGLIFLOZIN 25 MG PO SCH (16:47)
[2024-04-24] MEDS: ROSUVASTATIN 10 MG TAB (CRESTOR) PO SCH (20:39)
[2024-04-24] MEDS: traZODone 50 MG TAB PO SCH (20:39)
[2024-04-25] MEDS: MOM 30ML SUSPENSION UDC PO PRN (06:17)
[2024-04-25 06:24] VITALS: BP 155/80; TEMP 97.4; O2SAT 98
[2024-04-25] MEDS: CALCIUM CARBONATE 500 MG CHEW U/D PO SCH (09:00)
[2024-04-25] MEDS: POTASSIUM CHLORIDE 10MEQ SR TABLET PO SCH (09:18)
[2024-04-25] MEDS: CitaloPRAM (CeleXA) 10 MG TABLET PO SCH (09:21)
[2024-04-25] MEDS: FOLIC ACID 1MG TAB PO SCH (09:21)
[2024-04-25] MEDS: ASCORBIC ACID 500 MG TAB PO SCH (09:21)
[2024-04-25] MEDS: LETROZOLE 2.5 MG TAB PO SCH (09:23)
[2024-04-25 09:26] VITALS: BP 109/59
[2024-04-25 15:19] VITALS: BP 131/64; TEMP 97.7; O2SAT 97
[2024-04-26 06:31] VITALS: BP 120/59; TEMP 97.9; O2SAT 97
[2024-04-26] MEDS: ROSUVASTATIN 10 MG TAB (CRESTOR) PO SCH (09:16)
[2024-04-26] MEDS ORDERED: EMPAGLIFLOZIN 25 MG PO SCH ×2 (14:13→14:14)
[2024-04-26 16:41] VITALS: BP 146/71; TEMP 98.5; O2SAT 96
[2024-04-26] MEDS: SENNA 8.6 MG TAB (SENOKOT) PO SCH (20:54)
[2024-04-27 06:22] VITALS: BP 158/72; TEMP 97.7; O2SAT 99
[2024-04-27 16:51] VITALS: BP 149/72; TEMP 98.2; O2SAT 98
[2024-04-27] MEDS: SEMAGLUTIDE 1 MG/0.75 ML SC SCH (20:49)
[2024-04-27] MEDS ORDERED: ENTER DRUG NAME HERE (PATIENT'S OWN MED) SC SCH (21:00)
[2024-04-28 06:27] VITALS: BP 150/68; TEMP 97.2; O2SAT 99
[2024-04-28] MEDS ORDERED: CELE10TA PO (08:53)
[2024-04-28] MEDS ORDERED: SENO8.6T5 PO (08:53)
[2024-04-28 09:43] VITALS: BP 149/66
[2024-04-28 09:47] VITALS: BP 149/66
== END 2024-04-28 11:39 | disposition home or self-care (01) | DRG 881 ==
LOC: M ED 18:04 → EDBD 18:04 → M ED INP 04-23 13:51 → M PSY 04-23 17:32
PROVIDERS: ADMIT Psychiatry & Neurology Psychiatry; ATTEND Psychiatry & Neurology Psychiatry
DX: F32.A Depression, unspecified (principal); T42.4X2A Poisoning by benzodiazepines, intentional self-harm, initial encounter; E11.22 Type 2 diabetes mellitus with diabetic chronic kidney disease; I12.9 Hypertensive chronic kidney disease with stage 1 through stage 4 chronic kidney disease, or unspecified chronic kidney disease; N18.9 Chronic kidney disease, unspecified; K59.00 Constipation, unspecified; G47.00 Insomnia, unspecified; Z85.3 Personal history of malignant neoplasm of breast; Z96.653 Presence of artificial knee joint, bilateral; Z90.49 Acquired absence of other specified parts of digestive tract; Z79.899 Other long term (current) drug therapy; Z88.8 Allergy status to other drugs, medicaments and biological substances

== ENCOUNTER → 2025-05-07 | Outpatient (CLI) | payer MEDICARE, BC ==
[~2025-05-07] MED LIST changes: +CELE10TA PO; +GLIP2.5T46 PO; -GLIP2.5T6 PO; +SEMA1PEN2 SQ; +SENN-225 PO
== END ==
LOC: M WHC 14:56
PROVIDERS: ATTEND Internal Medicine
DX: Z12.31 Encounter for screening mammogram for malignant neoplasm of breast (principal)

== ENCOUNTER → 2025-05-27 | Outpatient (CLI) | payer MEDICARE, BC | LOC: M RAD 16:07 | DX: R10.30 Lower abdominal pain, unspecified (principal); Z95.828 Presence of other vascular implants and grafts; N20.0 Calculus of kidney ==

== ENCOUNTER 2025-05-29 09:18 | Emergency (ER) | payer MEDICARE, BC ==
[~2025-05-29] VITALS: Ht 160 cm; Wt 73.9 kg
[2025-05-29 10:13] LABS: BASO # 0.1 10^3/uL (0.0-0.2); BASO % 1.3 % (0.0-1.0); EOS # 0.2 10^3/uL (0.0-0.5); EOS % 1.9 % (0.0-3.0); LYMPH # 2.4 10^3/uL (1.5-5.0); LYMPH % 25.8 % (24.0-44.0); MONO # 1.0 10^3/uL (0.0-0.8); MONO % 10.6 % (2.0-8.0); NEUTROPHILS # 5.5 10^3/uL (1.5-8.5); NEUTROPHILS % 60.2 % (36.0-66.0); PLATELET COUNT, AUTOMATED 251 10^3/uL (150-450)
[2025-05-29 10:25] LABS: INR 1.0
[2025-05-29 10:43] LABS: ALT/SGPT 39.0 U/L (7.0-40); AST/SGOT 24.0 U/L (<34)
[2025-05-29] MEDS: MORPHINE 4 MG/ML 1 ML VIAL IV PRN (10:51)
[2025-05-29] MEDS: ONDANSETRON 4MG 2ML VIAL IV ONE (10:51)
[2025-05-29 11:00] LABS: MAGNESIUM LEVEL 1.9 MG/DL (1.8-2.4)
[2025-05-29 11:08] LABS: KETONE, URINE AUTO RFX TRACE mg/dL (NEGATIVE); LEUKOCYTE ESTERASE UR AUTO RFX NEGATIVE (NEGATIVE); MUCUS, URINE RFX SMALL (NEGATIVE); NITRITE, URINE AUTO RFX NEGATIVE (NEGATIVE); RBC, URINE AUTO RFX 1 /HPF (0-3); SQUAM EPITHELIAL CELL UR AURFX 0 /HPF (0-6); WBC, URINE AUTO RFX 2 /HPF (0-3)
[2025-05-29] MEDS ORDERED: CITA20TA6 PO (11:13)
[2025-05-29] MEDS ORDERED: SENN1TAB85 PO (11:13)
[2025-05-29] MEDS ORDERED: CITA10TA7 PO (11:13)
[2025-05-29] MEDS ORDERED: ONDA-282 PO (11:13)
[2025-05-29] MEDS ORDERED: HOME MED LIST COMPLETE! XX SCH (11:15)
[2025-05-29] MEDS: NS (Normal Saline) 0.9% 1,000 ML IV SCH (11:34)
[2025-05-29] MEDS ORDERED: PERC5TAB12 PO (12:54)
[2025-05-29 13:01] VITALS: BP 128/66
[2025-05-29 13:04] VITALS: TEMP 97.6; O2SAT 96
[2025-05-29] MEDS: PERCOCET 5MG/325MG TAB PO ONE (14:03)
== END 2025-05-29 14:37 | disposition home or self-care (01) ==
LOC: M ED 09:18
DX: N20.1 Calculus of ureter (principal); N17.9 Acute kidney failure, unspecified; E11.9 Type 2 diabetes mellitus without complications; I10 Essential (primary) hypertension; F10.10 Alcohol abuse, uncomplicated; Z88.8 Allergy status to other drugs, medicaments and biological substances; Z79.899 Other long term (current) drug therapy
CPT/HCPCS: 80047; 80076; 81001; 82150; 83605; 83690; 83735; 85025; 85610; 85730; 93005; 93041; 96374; 99285; J2405

== ENCOUNTER → 2025-06-03 | Outpatient (POV) | payer MEDICARE, BC ==
[~2025-06-03] VITALS: Ht 157.5 cm; Wt 73.9 kg
[~2025-06-03] MED LIST changes: +CITA10TA7 PO; +CITA20TA6 PO; +ONDA-282 PO; +PERC5TAB12 PO; +SENN1TAB85 PO
[2025-06-03 10:24] VITALS: BP 129/62; O2SAT 97
== END ==
LOC: M IRPOV 09:54
PROVIDERS: ATTEND Radiology Diagnostic Radiology
DX: N20.0 Calculus of kidney (principal); Z95.828 Presence of other vascular implants and grafts; Z88.8 Allergy status to other drugs, medicaments and biological substances; Z79.899 Other long term (current) drug therapy; E11.22 Type 2 diabetes mellitus with diabetic chronic kidney disease; I12.9 Hypertensive chronic kidney disease with stage 1 through stage 4 chronic kidney disease, or unspecified chronic kidney disease; N18.9 Chronic kidney disease, unspecified; Z85.3 Personal history of malignant neoplasm of breast; Z92.21 Personal history of antineoplastic chemotherapy; Z92.3 Personal history of irradiation

== ENCOUNTER → 2025-07-13 | Outpatient (CLI) | payer MEDICARE, BC ==
[~2025-07-13] MED LIST changes: +OMEGCAP9 PO; +PERCOCET PO
[2025-07-13 14:56] LABS: APPEARANCE, URINE HAZY (CLEAR); BACTERIA, URINE AUTO NEGATIVE (NEGATIVE); BILIRUBIN, URINE AUTO NEGATIVE (NEGATIVE); BLOOD, URINE BLOOD NEGATIVE (NEGATIVE); GLUCOSE, URINE (UA) AUTO 3+ mg/dL (NEGATIVE); KETONE, URINE AUTO NEGATIVE (NEGATIVE); LEUKOCYTE ESTERASE, URINE AUTO NEGATIVE (NEGATIVE); MUCUS, URINE SMALL (NEGATIVE); NITRITE, URINE AUTO NEGATIVE (NEGATIVE); PROTEIN, URINE AUTO NEGATIVE (NEGATIVE); RBC, URINE AUTO 1 /HPF (0-3); SPECIFIC GRAVITY URINE AUTO 1.020 (1.002-1.035); SQUAMOUS EPITHELIAL CELL UR AU 0 /HPF (0-6); UROBILINOGEN, URINE AUTO 0.2 mg/dL (0.0-2.0); WBC, URINE AUTO 0 /HPF (0-3)
== END ==
LOC: M WUC 11:18
PROVIDERS: ATTEND Nurse Practitioner Family
DX: Z01.818 Encounter for other preprocedural examination (principal); R82.90 Unspecified abnormal findings in urine

== ENCOUNTER → 2025-07-20 | Outpatient (CLI) | payer MEDICARE, BC ==
[~2025-07-20] MED LIST changes: +ACETAMINOPHEN 325 MG TAB PO PRN; +COLA100C5 PO; +MORPHINE 2 MG/ML 1 ML VIAL IV PRN; +NS (Normal Saline) 0.9% 1,000 ML IV SCH; +OMEGCAP4 PO; +OXYB5TAB14 PO; +PERCOCET 5MG/325MG TAB PO PRN
[2025-07-20] MEDS: NS (Normal Saline) 0.9% 1,000 ML IV SCH (11:50)
[2025-07-20 11:55] VITALS: TEMP 97.6
[2025-07-20] MEDS: CIPROFLOXACIN 400 MG in IV 1 EA IV ONE (12:52)
[2025-07-20 13:11] LABS: INR 1.07
[2025-07-20] MEDS: MIDAZOLAM INJ 2 MG/2 ML VIAL IV PRN (13:42)
[2025-07-20] MEDS: LIDOCAINE 1% MDV 20 ML VIAL SC SCH (13:48)
[2025-07-20] MEDS: ISOVUE-300 61% 100 ML VIAL IV SCH (13:48)
[2025-07-20] MEDS: SODIUM CHLORIDE 0.9% 1000 ML XX SCH (13:49)
[2025-07-20 16:00] VITALS: BP 165/68; O2SAT 98
== END ==
LOC: M IRPRO 11:34
PROVIDERS: ATTEND Radiology Diagnostic Radiology
DX: N20.0 Calculus of kidney (principal); Z95.828 Presence of other vascular implants and grafts
CPT/HCPCS: 50433; 76942; 85610; 99152; 99153; C1758; C1894; J0744; J2250; J3010; Q9967

== ENCOUNTER 2025-07-22 09:31 | Day surgery (SDC) | payer MEDICARE, BC ==
[2025-07-21] MEDS: INSULIN LISPRO (NovoLOG) PER UNIT SC SCH (14:53)
[2025-07-22] VITALS (8 sets, daily range): BP systolic 113–177; BP diastolic 50–93; TEMP 97.3–98.7; O2SAT 93–99
[~2025-07-22] VITALS: Ht 160 cm; Wt 76.6 kg
[~2025-07-22 09:31] MED LIST changes: -ACETAMINOPHEN 325 MG TAB PO PRN; -COLA100C5 PO; +LIDOCAINE 2% 100 MG/5 ML SDV (FOR ANES.) As Ordered ONE; +MIDAZOLAM INJ 2 MG/2 ML VIAL As Ordered ONE; -MORPHINE 2 MG/ML 1 ML VIAL IV PRN; -NS (Normal Saline) 0.9% 1,000 ML IV SCH; -OMEGCAP4 PO; -OXYB5TAB14 PO; -PERCOCET 5MG/325MG TAB PO PRN; +ROCURONIUM BROMIDE 50MG/5ML VIAL As Ordered ONE
[2025-07-22] MEDS ORDERED: ONDANSETRON 4MG/2ML VIAL IV PRN (10:30)
[2025-07-22] MEDS ORDERED: GLUCAGON INJ 1 MG VIAL SC PRN (10:55)
[2025-07-22] MEDS ORDERED: DEXTROSE 50% 50 ML SYRINGE IV PRN (10:55)
[2025-07-22] MEDS ORDERED: GLUCOSE 4 GM CHEW PO PRN (10:55)
[2025-07-22] MEDS: ceFAZolin SOD 2 GM IV ONCE IV ONE (11:07)
[2025-07-22] MEDS ORDERED: ACETAMINOPHEN 1000MG/100ML IV BAG As Ordered ONE (11:34)
[2025-07-22] MEDS ORDERED: PHENYLephrine 500MCG 5ML (100MCG/ML) SYRINGE As Ordered ONE (12:00)
[2025-07-22] MEDS ORDERED: ONDANSETRON 4MG/2ML VIAL As Ordered ONE (12:01)
[2025-07-22] MEDS ORDERED: SUGAMMADEX SODIUM 500 MG/5 ML VIAL As Ordered ONE (12:01)
[2025-07-22] MEDS: ISOVUE-300 61% 100 ML VIAL As Ordered ONE (12:30)
[2025-07-22] MEDS ORDERED: MORPHINE 2 MG/ML 1 ML VIAL IV PRN ×2 (12:50→16:10)
[2025-07-22] MEDS: HYDROMORPHONE HCL 0.5 MG/0.5 ML SYRINGE IV PRN (13:12)
[2025-07-22] MEDS: ONDANSETRON 4MG/2ML VIAL IV PRN (13:18)
[2025-07-22 13:52] LABS: PLATELET COUNT, AUTOMATED 202 10^3/uL (150-450)
[2025-07-22 14:09] LABS: CALCIUM LEVEL 8.1 MG/DL (8.3-10.6); CARBON DIOXIDE LEVEL 24.0 MMOL/L (20-31); CHLORIDE LEVEL 106.0 MMOL/L (98-107); CREATININE FOR GFR 1.16 MG/DL (0.55-1.30); GLOMERULAR FILTRATION RATE 50.1 (>39); POTASSIUM SERUM 3.9 MMOL/L (3.5-5.1); SODIUM LEVEL 142.0 MMOL/L (136-145)
[2025-07-22] MEDS: NS (Normal Saline) 0.9% 1,000 ML IV SCH (14:53)
[2025-07-22] MEDS: PERCOCET 5MG/325MG TAB PO PRN (15:07)
[2025-07-22] MEDS ORDERED: HOME MED LIST COMPLETE! XX SCH (15:35)
[2025-07-22] MEDS: KETOROLAC 30 MG/ML 1 ML VIAL IV ONE (16:27)
[2025-07-22] MEDS: LR 1,000 ML IV SCH (16:50)
[2025-07-22] MEDS: ceFAZolin SOD 1 GM in DEXTROSE 5% (D5W) ADV/MINI-BAG 50 ML IV SCH (18:06)
[2025-07-22] MEDS: DOCUSATE SODIUM 100 MG CAPSULE PO SCH (20:40)
[2025-07-22] MEDS: traZODone 50 MG TAB PO SCH (20:40)
[2025-07-22] MEDS: INSULIN LISPRO (NovoLOG) PER UNIT SC SCH (21:00)
[2025-07-23 04:09] VITALS: BP 136/63; TEMP 99.9; O2SAT 97
[2025-07-23] MEDS: ACETAMINOPHEN 325 MG TAB PO PRN (04:10)
[2025-07-23 07:12] LABS: PLATELET COUNT, AUTOMATED 177 10^3/uL (150-450)
[2025-07-23 07:38] VITALS: BP 128/58; TEMP 98.2; O2SAT 97
[2025-07-23 07:42] LABS: CALCIUM LEVEL 7.5 MG/DL (8.3-10.6); CARBON DIOXIDE LEVEL 24.0 MMOL/L (20-31); CHLORIDE LEVEL 108.0 MMOL/L (98-107); CREATININE FOR GFR 1.64 MG/DL (0.55-1.30); GLOMERULAR FILTRATION RATE 33.1 (>39); POTASSIUM SERUM 4.4 MMOL/L (3.5-5.1); SODIUM LEVEL 142.0 MMOL/L (136-145)
[2025-07-23] MEDS: POTASSIUM CHLORIDE 10MEQ SR TABLET PO SCH (08:45)
[2025-07-23] MEDS: LETROZOLE 2.5 MG TAB PO SCH (08:45)
[2025-07-23 08:47] VITALS: BP 128/58
[2025-07-23] MEDS: METOPROLOL SUCC. 50 MG *XL* TAB PO SCH (08:47)
[2025-07-23] MEDS: LOSARTAN 50 MG TABLET PO SCH (08:47)
[2025-07-23] MEDS: ROSUVASTATIN 10 MG TAB PO SCH (08:47)
[2025-07-23 09:10] VITALS: BP 145/64; TEMP 99.3; O2SAT 96
[2025-07-23] MEDS: CALCIUM CARBONATE 500 MG CHEW U/D PO ONE (09:17)
[2025-07-23 11:57] VITALS: BP 101/50; TEMP 99.1; O2SAT 98
[2025-07-23] MEDS ORDERED: COLA100C5 PO (12:40)
[2025-07-23] MEDS ORDERED: PERCOCET PO (12:43)
[2025-07-23] MEDS ORDERED: OXYB5TAB14 PO (12:43)
[2025-07-23 13:07] LABS: CALCIUM LEVEL 8.5 MG/DL (8.3-10.6); CARBON DIOXIDE LEVEL 25.0 MMOL/L (20-31); CHLORIDE LEVEL 104.0 MMOL/L (98-107); CREATININE FOR GFR 1.87 MG/DL (0.55-1.30); GLOMERULAR FILTRATION RATE 28.2 (>39); POTASSIUM SERUM 4.2 MMOL/L (3.5-5.1); SODIUM LEVEL 139.0 MMOL/L (136-145)
[2025-07-23] MEDS: PERCOCET 5MG/325MG TAB PO PRN (14:54)
[2025-09-09] MEDS ORDERED: OMEGCAP4 PO (10:36)
== END 2025-07-23 15:24 | disposition home or self-care (01) ==
LOC: M SDC 09:31 → M MS4PR 14:42 → M SDC 07-23 15:24
PROVIDERS: ATTEND Urology
DX: N20.0 Calculus of kidney (principal); E11.9 Type 2 diabetes mellitus without complications; I10 Essential (primary) hypertension; N28.89 Other specified disorders of kidney and ureter; E78.00 Pure hypercholesterolemia, unspecified; E04.1 Nontoxic single thyroid nodule; K21.9 Gastro-esophageal reflux disease without esophagitis; Z79.899 Other long term (current) drug therapy; Z79.84 Long term (current) use of oral hypoglycemic drugs; Z85.3 Personal history of malignant neoplasm of breast; Z92.21 Personal history of antineoplastic chemotherapy; Z92.3 Personal history of irradiation; Z98.84 Bariatric surgery status; Z90.49 Acquired absence of other specified parts of digestive tract; Z90.710 Acquired absence of both cervix and uterus; Z88.8 Allergy status to other drugs, medicaments and biological substances; F41.9 Anxiety disorder, unspecified
CPT/HCPCS: 36415; 50081; 76000; 80048; 82365; 85014; 85018; 85027; 86850; 86900; 86901; C1887; C2617; J0131; J0688; J0690; J1171; J1885; J2250; J2371; J2405; J2765; J3010; Q9967

== ENCOUNTER → 2025-07-28 | Outpatient (CLI) | payer MEDICARE, BC ==
[~2025-07-28] MED LIST changes: +COLA100C5 PO; -LIDOCAINE 2% 100 MG/5 ML SDV (FOR ANES.) As Ordered ONE; -MIDAZOLAM INJ 2 MG/2 ML VIAL As Ordered ONE; +OXYB5TAB14 PO; -ROCURONIUM BROMIDE 50MG/5ML VIAL As Ordered ONE
[2025-07-28 18:35] LABS: CALCIUM LEVEL 8.4 MG/DL (8.3-10.6); CARBON DIOXIDE LEVEL 25.0 MMOL/L (20-31); CHLORIDE LEVEL 103.0 MMOL/L (98-107); POTASSIUM SERUM 4.5 MMOL/L (3.5-5.1); SODIUM LEVEL 139.0 MMOL/L (136-145)
[2025-07-28 18:37] LABS: CREATININE FOR GFR 1.44 MG/DL (0.55-1.30); GLOMERULAR FILTRATION RATE 38.6 (>39)
== END ==
LOC: M WUC 13:18
PROVIDERS: ATTEND Urology
DX: N20.0 Calculus of kidney (principal)

== ENCOUNTER → 2025-07-29 | Outpatient (CLI) | payer MEDICARE, BC ==
[~2025-07-29] MED LIST changes: +PROHANCE 279.3MG/ML 15ML VIAL ONE
== END ==
LOC: M PLAIMG 10:59
PROVIDERS: ATTEND Internal Medicine
DX: Z12.31 Encounter for screening mammogram for malignant neoplasm of breast (principal); Z86.000 Personal history of in-situ neoplasm of breast; R59.9 Enlarged lymph nodes, unspecified
CPT/HCPCS: A9579; C8908

== ENCOUNTER → 2025-08-10 | Outpatient (REF) | payer MEDICARE, OTHER ==
[~2025-08-10] MED LIST changes: -PROHANCE 279.3MG/ML 15ML VIAL ONE
[2025-08-10 14:54] LABS: IRON (FE) 34 UG/DL (50-170); PERCENT SATURATION 8.7 % (13.2-45.0)
[2025-08-10 14:58] LABS: TOTAL 25(OH) VITAMIN D 78.8 NG/ML (20.0-100.0)
[2025-08-10 14:59] LABS: VITAMIN B12 LEVEL 767 PG/ML (211-911)
[2025-08-11 10:29] LABS: PHOSPHORUS LEVEL 3.8 MG/DL (2.4-5.1)
[2025-08-13 02:57] LABS: VITAMIN A, RETINOL LEVEL 62 mcg/dL (38-98)
== END ==
LOC: M LAB REF 14:02
PROVIDERS: ATTEND Internal Medicine
DX: D64.9 Anemia, unspecified (principal); Z98.84 Bariatric surgery status; Z79.899 Other long term (current) drug therapy